=== PATIENT | male | born 1995 | race Caucasian/White ===

== ENCOUNTER → 2021-04-15 12:15 | Outpatient (CLI) | payer OTHER, SELFPAY ==
--- NOTE | 2021-04-15 12:18 | DI.US.S_ITS ---
PROCEDURE: US SOFT TISSUE HEAD AND NECK INDICATIONS: RIGHT SUPRACLAVICULAR LUMP TECHNIQUE: Real-time scanning was performed of the neck region of interest, with image documentation. COMPARISON: None. FINDINGS: Ultrasound of the right supraclavicular region, in the area of palpable lump demonstrates the presence of a benign-appearing lymph node measuring 0.8 x 0.4 x 0.9 cm with normal vascularity and a visible fatty hilum. IMPRESSION: Palpable lump in the right supraclavicular region corresponds to a small benign-appearing lymph node. Dictated by: Nasim Stevens M.D. on 04/17/2021 at 10:18 Approved by: Nasim Stevens M.D. on 04/17/2021 at 10:19
== END ==
PROVIDERS: PCP Family Medicine; Referring Provider Physician Assistant; Visit Provider Physician Assistant
DX: R22.1 Localized swelling, mass and lump, neck (principal)
CPT/HCPCS: 76536

== ENCOUNTER → 2021-04-18 10:08 | Outpatient (CLI) | payer OTHER, SELFPAY ==
[2021-04-18 18:50] LABS: Alanine Aminotransferase 40 IU/L (<50); Albumin 4.9 g/dL (3.5-5.0); Albumin Globulin Ratio 1.7 (1.0-2.8); Alkaline Phosphatase 81 U/L (38-126); Aspartate Aminotransferase 35 IU/L (17-59); BUN Creatinine Ratio 23.3 (6-22); Bilirubin Total 0.4 mg/dL (0.2-1.3); Blood Urea Nitrogen 20 mg/dL (9-20); Calcium 10.3 mg/dL (8.4-10.2); Carbon Dioxide 25 mmol/L (22-32); Chloride 105 mmol/L (98-107); Estimated Glomerular Filt Rate > 60.0 mL/min (>60); Globulin 2.9 g/dL (1.7-4.1); Glucose 95 mg/dL (70-100); HEMOLYSIS 18 (0-50); Potassium 4.5 mmol/L (3.4-5.1); Sodium 139 mmol/L (137-145); Total Protein 7.8 g/dL (6.3-8.2)
[2021-04-18 18:56] LABS: Add Manual Diff / Slide Review NO; Basophils Absolute Auto 0 /uL (0-100); Basophils Percent Auto 0.4 % (0-2); Eosinophils Absolute Auto 200 /uL (0-450); Eosinophils Percent Auto 2.6 % (2-4); Hematocrit 46.7 % (41-53); Hemoglobin 15.9 g/dL (13.5-17.5); Lymphocytes Absolute Auto 2200 /uL (1100-4500); Lymphocytes Percent Auto 28.8 % (25-40); Mean Corpuscular HGB Conc 34.1 % (30-36); Mean Corpuscular Volume 91.1 fL (80-100); Monocytes Absolute Auto 700 /uL (0-900); Monocytes Percent Auto 9.8 % (3-14); Neutrophils Absolute Auto 4500 /uL (1500-7000); Neutrophils Percent Auto 58.4 % (50-75); Platelet Count 259 X10^3/uL (150-400); Red Blood Cell Count 5.12 X10^6/uL (4.5-5.9); Red Cell Distribution Width 13.3 % (11.6-14.8); White Blood Cell Count 7.6 X10^3/uL (4.5-11.0)
== END ==
PROVIDERS: PCP Family Medicine; Visit Provider Physician Assistant
DX: R22.1 Localized swelling, mass and lump, neck (principal)
CPT/HCPCS: 80053; 85025

== ENCOUNTER → 2021-06-06 10:50 | Outpatient (CLI) | payer OTHER, SELFPAY ==
[2021-06-06 12:49] LABS: COVID19 -Nasal RAPID Negative (Negative)
== END ==
PROVIDERS: PCP Physician Assistant; Referring Provider Internal Medicine; Visit Provider Internal Medicine
DX: Z20.822 Contact with and (suspected) exposure to COVID-19 (principal)
CPT/HCPCS: 87635; C9803

== ENCOUNTER → 2021-06-06 10:52 | Outpatient (CLI) | payer OTHER, SELFPAY ==
--- NOTE | 2021-06-12 11:51 | PM.PFT.1 ---
Pulmonary Function Test Referral & Results Date Patient Seen: 06/06/21 Requesting provider: Debbie Weeks Results: The spirometry demonstrates an FVC of 3.39 L which is 71% of predicted. The FEV1 was measured at 2.19 L which is 55% of predicted. The FEV1/FVC ratio was 65 which is 78% of predicted. Following the administration of bronchodilator there was a 12% improvement in FEV1 and a 46% improvement in FEF 25-75% Lung volumes show an SVC of 3.48 L which is 75% of predicted. The diffusing capacity was measured at 34 which is 132% of predicted. The maximum voluntary ventilation was reduced Interpretation: This study demonstrates mild reduction FEV1 and similarly mild reduction FEV1/FVC ratio suggesting the presence of mild obstructive lung disease. There is some evidence of benefit following bronchodilator particularly small airway flow based on more pronounced improvement in FEF 25-75% as above There is a mild reduction in lung volumes suggesting mild restrictive lung disease
== END ==
PROVIDERS: PCP Physician Assistant; Referring Provider Specialist; Visit Provider Specialist
DX: J45.40 Moderate persistent asthma, uncomplicated (principal); Z87.891 Personal history of nicotine dependence; Z20.822 Contact with and (suspected) exposure to COVID-19
CPT/HCPCS: 87635; 94060; 94726; 94729; C9803

== ENCOUNTER → 2021-07-14 10:00 | Outpatient (CLI) | payer OTHER, SELFPAY ==
--- NOTE | 2021-07-14 10:01 | DI.CT.S_ITS ---
PROCEDURE: CT CHEST W CON INDICATIONS: SUPRACLAVICULAR LYMPH NODE,HYPERCALCEMIA,ASTHMA TECHNIQUE: After the administration of intravenous contrast, 5 mm thick sections acquired from the pulmonary apices to the posterior costophrenic angles. 1 mm axial lung, 5 mm thick coronal and sagittal reformats and 7 mm axial MIP were acquired. For radiation dose reduction, the following was used: automated exposure control, adjustment of mA and/or kV according to patient size. COMPARISON: [facility] ([place]), CR, XR CHEST 2V, 04/24/2021, 10:24. FINDINGS: Image quality: Excellent. Lungs and pleura: Bilateral anterolateral pleural thickening and subpleural reticulation and septal thickening, right greater than left. There are minor pleural-based consolidative changes and architectural distortion in the right middle lobe. Posteromedial pleural thickening bilaterally also with overlying septal thickening. No pleural effusions. No acute appearing consolidations, suspicious nodules, or masses. Central and peripheral airways are patent. No bronchiectasis or bronchial wall thickening. Mediastinum: Heart size is normal. No pericardial effusion. No mediastinal or hilar adenopathy by size criteria. Thoracic aorta and central pulmonary arteries are normal in size. Esophagus is normal in caliber. No hiatal hernia. Bones and chest wall: Despite technical maneuvers, there is beam hardening artifact in the right supraclavicular region obscuring visualization of the area of concern. Elsewhere, there are no suspicious masses or cysts in the supraclavicular regions. No axillary adenopathy or cyst. Appearance of the chest wall is normal. No suspicious bony lesions. No vertebral body compression fractures. Thyroid gland is normal . Abdomen: Visualized upper abdominal solid organs appear normal. Upper abdominal bowel loops are normal in caliber. IMPRESSION: 1. Suboptimal visualization of the area of concern due to technical factors. For continued surveillance of this area, ultrasound is recommended. 2. Chronic appearing bilateral pleural thickening and pleural parenchymal scar formation. Dictated by: Shahrzad Smith M.D. on 07/14/2021 at 11:27 Approved by: Shahrzad Smith M.D. on 07/14/2021 at 11:55
== END ==
PROVIDERS: PCP Physician Assistant; Referring Provider Physician Assistant; Visit Provider Physician Assistant
DX: R59.0 Localized enlarged lymph nodes (principal); J45.40 Moderate persistent asthma, uncomplicated; E83.52 Hypercalcemia
CPT/HCPCS: 71260; Q9967